=== PATIENT | female | born 1930 | race Caucasian/White ===

== ENCOUNTER 2017-04-13 15:35 | Emergency (ER) | payer MEDICARE, OTHER ==
[~2017-04-13] VITALS: Wt 40.0 kg
[~2017-04-13 15:35] MED LIST: ALEN70TA30 PO; ASPI-664 PO; DONE5TAB4 PO; METO-448 PO; SIMV20TA2 PO
--- NOTE | 2017-04-13 16:59 | ERD ---
ER Documentation Chief Complaint Chief Complaint RIBS AND R HIP/KNEE PAIN FOLLOWING MECHANICAL FALL HPI 86 y/o female patient with history of Alzheimer's disease, presents to the emergency department with her daughters c/o right hip pain located in the posterior trochanter, after a mechanical fall witnessed by her daughter last night. After the incident the patient was ambulating and did not complain about pain, no head trauma and no loss of consciousness. Denies headache, no chest pain, no dizziness, no fever, chills, N/V/D. Treatment attempted: Motrin with improvement of the pain ROS All systems reviewed and are negative except as per history of present illness. Medications Home Meds Reported Medications Aspirin* (Aspirin* EC) 81 Mg Tablet.dr, 81 MG PO DAILY, TAB 09/01/14 Metoprolol Tartrate* (Lopressor*) 25 Mg Tab, 25 MG PO BID, TAB 09/01/14 Alendronate Sodium* (Fosamax*) 70 Mg Tablet, 70 MG PO Q7D, TAB 09/01/14 Simvastatin (Simvastatin) 20 Mg Tablet, 20 MG PO DAILY 08/31/13 Donepezil Hcl* (Donepezil Hcl*) 5 Mg Tab.rapdis, 5 MG PO DAILY 08/31/13 Allergies Allergies: Coded Allergies: No Known Allergy (Unverified , 08/31/14) PMhx/Soc History of Surgery: No (NOT STATED) Anesthesia Reaction: No Hx Neurological Disorder: Yes (DEMENTIA) Hx Respiratory Disorders: No Hx Cardiac Disorders: Yes (HYPERLIPEDEMIA) Hx Psychiatric Problems: No Hx Miscellaneous Medical Probl: Yes (dementia,hyperlipidemia,osteoporosis) Hx Alcohol Use: No Hx Substance Use: No Hx Tobacco Use: No Physical Exam Vitals Vital Signs Date Time Temp Pulse Resp B/P Pulse Ox O2 Delivery O2 Flow Rate FiO2 04/13/17 15:39 98.1 74 18 139/63 99 Physical Exam Const: Alert, oriented only in person, in no distress Head: Atraumatic Eyes: Normal Conjunctiva ENT: Normal External Ears, Nose and Mouth. Neck: Full range of motion..~ No meningismus. Resp: Clear to auscultation bilaterally Cardio: Regular rate and rhythm, no murmurs Abd: Soft, non tender, non distended. Normal bowel sounds Skin: No petechiae or rashes Back: No midline or flank tenderness Ext: Right hip: No deformity, no ecchymosis, tenderness to palpation about the great trochanter Neur: Awake and alert Psych: Normal Mood and Affect Procedures/MDM 86 y/o female patient history of Alzheimer's, presents to the ED c/o right hip pain since last night after a mechanical fall. Vital signs stable, Physical exam showed localized tenderness and mild edema over her greater trochanter, no deformity. Differential diagnosis include but not limited to: Hip contusion, acute ligament/tendon injury, hip fracture, hip dislocation. Pertinent Data: X-Rays: DIAGNOSTIC IMAGING REPORT Patient: SUAD CROOK : 1930 Age: 86 Sex: F MR #: [id number] DOS: 04/13/171651 Ordering MD: SOCRATES GALLO MD Location: [facility] Room/Bed: PROCEDURE: XR Right Hip. CLINICAL INDICATION: Right hip pain. TECHNIQUE: Two views. Frontal and lateral. COMPARISON: No prior studies are available for comparison. FINDINGS: There is no right hip fracture. There is no dislocation. There is a possible nondisplaced fracture of the right superior pubic ramus with some irregularity noted. There is no other fracture. The soft tissues are normal. There are degenerative changes of the right hip with osteophytes noted. There is no joint space narrowing. There is no lytic or blastic lesion. There is no radiopaque foreign body. IMPRESSION: 1. Mild degenerative changes of the right hip. 2. Possible nondisplaced fracture of the right superior pubic ramus. Correlation with CT scan should be considered year 3. Otherwise unremarkable images of the right hip. RPTAT: QQ .David Torres MD, MD Date Time Electronically viewed and signed by .David Torres MD, MD on 04/13/2017 18:05 Physical examination and clinical presentation consistent most likely with hip contusion, the XR showed a possible nondisplaced fracture of the right superior pubic ramus, however, clinically, there is not suprapubic tenderness. During the ED course the patient remained stable Results and medical impression discussed with daughters whom agree with management. The patient will be discharged home with a Rx for ibuprofen as needed. Side effects of prescribed NSAID medication (GI distress, edema, bleeding, HTN) were reviewed. If symptoms persist, worsen or new symptoms develop, then patient is instructed to follow-up with the primary care provider. If the patient is unable to see the primary care provider, then return to the ED immediately. Departure Diagnosis: Primary Impression: Contusion of hip, right Condition: Stable Additional Instructions: Muchas hudson por [facility] para ocampo servicio. Esperamos que en ocampo visita a la lnoa de emergencia ocampo problema medico haya sido solucionado y que se sienta mucho mejor. Para estar seguros que ocampo mejoria sigue en proceso, le pedimos el favor de hacer joby giovani de seguimiento medico con ocampo doctor primario en los proximos 2-4 malone. Lleve con usted estos documentos y las medicinas recetadas. Si meeta sintomas empeoran y no puede aurelia a ocampo doctor, por favor regrese a lona de emergencia. En edna que usted no tenga un mdico de atencin primaria: Llame al mdico o clnica comunitaria de referencia que aparece abajo marilee las horas de consultorio para hacer joby giovani para que le vean. CLINICAS: [facility] [phone] [facility] [phone] [facility] [phone] [address] [facility] [phone] [facility] [phone] 6[address] [facility]. [phone] SOCRATES PACHECO MD Apr 13, 2017 16:59
--- NOTE | 2017-04-13 16:59 | ERD ---
ER Documentation Chief Complaint Chief Complaint RIBS AND R HIP/KNEE PAIN FOLLOWING MECHANICAL FALL HPI 86 y/o female patient with history of Alzheimer's disease, presents to the emergency department with her daughters c/o right hip pain located in the posterior trochanter, after a mechanical fall witnessed by her daughter last night. After the incident the patient was ambulating and did not complain about pain, no head trauma and no loss of consciousness. Denies headache, no chest pain, no dizziness, no fever, chills, N/V/D. Treatment attempted: Motrin with improvement of the pain ROS All systems reviewed and are negative except as per history of present illness. Medications Home Meds Reported Medications Aspirin* (Aspirin* EC) 81 Mg Tablet.dr, 81 MG PO DAILY, TAB 09/01/14 Metoprolol Tartrate* (Lopressor*) 25 Mg Tab, 25 MG PO BID, TAB 09/01/14 Alendronate Sodium* (Fosamax*) 70 Mg Tablet, 70 MG PO Q7D, TAB 09/01/14 Simvastatin (Simvastatin) 20 Mg Tablet, 20 MG PO DAILY 08/31/13 Donepezil Hcl* (Donepezil Hcl*) 5 Mg Tab.rapdis, 5 MG PO DAILY 08/31/13 Allergies Allergies: Coded Allergies: No Known Allergy (Unverified , 08/31/14) PMhx/Soc History of Surgery: No (NOT STATED) Anesthesia Reaction: No Hx Neurological Disorder: Yes (DEMENTIA) Hx Respiratory Disorders: No Hx Cardiac Disorders: Yes (HYPERLIPEDEMIA) Hx Psychiatric Problems: No Hx Miscellaneous Medical Probl: Yes (dementia,hyperlipidemia,osteoporosis) Hx Alcohol Use: No Hx Substance Use: No Hx Tobacco Use: No Physical Exam Vitals Vital Signs Date Time Temp Pulse Resp B/P Pulse Ox O2 Delivery O2 Flow Rate FiO2 04/13/17 15:39 98.1 74 18 139/63 99 Physical Exam Const: Alert, oriented only in person, in no distress Head: Atraumatic Eyes: Normal Conjunctiva ENT: Normal External Ears, Nose and Mouth. Neck: Full range of motion..~ No meningismus. Resp: Clear to auscultation bilaterally Cardio: Regular rate and rhythm, no murmurs Abd: Soft, non tender, non distended. Normal bowel sounds Skin: No petechiae or rashes Back: No midline or flank tenderness Ext: Right hip: No deformity, no ecchymosis, tenderness to palpation about the great trochanter Neur: Awake and alert Psych: Normal Mood and Affect Procedures/MDM 86 y/o female patient history of Alzheimer's, presents to the ED c/o right hip pain since last night after a mechanical fall. Vital signs stable, Physical exam showed localized tenderness and mild edema over her greater trochanter, no deformity. Differential diagnosis include but not limited to: Hip contusion, acute ligament/tendon injury, hip fracture, hip dislocation. Pertinent Data: X-Rays: DIAGNOSTIC IMAGING REPORT Patient: SUAD CROOK : 1930 Age: 86 Sex: F MR #: [id number] DOS: 04/13/171651 Ordering MD: SOCRATES GALLO MD Location: FTE Room/Bed: PROCEDURE: XR Right Hip. CLINICAL INDICATION: Right hip pain. TECHNIQUE: Two views. Frontal and lateral. COMPARISON: No prior studies are available for comparison. FINDINGS: There is no right hip fracture. There is no dislocation. There is a possible nondisplaced fracture of the right superior pubic ramus with some irregularity noted. There is no other fracture. The soft tissues are normal. There are degenerative changes of the right hip with osteophytes noted. There is no joint space narrowing. There is no lytic or blastic lesion. There is no radiopaque foreign body. IMPRESSION: 1. Mild degenerative changes of the right hip. 2. Possible nondisplaced fracture of the right superior pubic ramus. Correlation with CT scan should be considered year 3. Otherwise unremarkable images of the right hip. RPTAT: QQ .David Torres MD, MD Date Time Electronically viewed and signed by .David Torres MD, MD on 04/13/2017 18:05 Physical examination and clinical presentation consistent most likely with hip contusion, the XR showed a possible nondisplaced fracture of the right superior pubic ramus, however, clinically, there is not suprapubic tenderness. During the ED course the patient remained stable Results and medical impression discussed with daughters whom agree with management. The patient will be discharged home with a Rx for ibuprofen as needed. Side effects of prescribed NSAID medication (GI distress, edema, bleeding, HTN) were reviewed. If symptoms persist, worsen or new symptoms develop, then patient is instructed to follow-up with the primary care provider. If the patient is unable to see the primary care provider, then return to the ED immediately. Departure Diagnosis: Primary Impression: Contusion of hip, right Condition: Stable Additional Instructions: Muchas [place] por [facility] para ocampo servicio. Esperamos que en ocampo visita a la lona de emergencia ocampo problema medico haya sido solucionado y que se sienta mucho mejor. Para estar seguros que ocampo mejoria sigue en proceso, le pedimos el favor de hacer joby giovani de seguimiento medico con ocampo doctor primario en los proximos 2-4 malone. Lleve con usted estos documentos y las medicinas recetadas. Si meeta sintomas empeoran y no puede aurelia a ocampo doctor, por favor regrese a lona de emergencia. En edna que usted no tenga un mdico de atencin primaria: Llame al mdico o clnica comunitaria de referencia que aparece abajo marilee las horas de consultorio para hacer joby giovani para que le vean. CLINICAS: [facility] [phone] [facility] [phone] [address] [facility] [phone] [address] [facility] [phone] [facility] [phone] [address] [facility]. [phone] SOCRATES PACHECO MD Apr 13, 2017 16:59
--- NOTE | 2017-04-13 16:59 | ERD ---
ER Documentation Chief Complaint Chief Complaint RIBS AND R HIP/KNEE PAIN FOLLOWING MECHANICAL FALL HPI 86 y/o female patient with history of Alzheimer's disease, presents to the emergency department with her daughters c/o right hip pain located in the posterior trochanter, after a mechanical fall witnessed by her daughter last night. After the incident the patient was ambulating and did not complain about pain, no head trauma and no loss of consciousness. Denies headache, no chest pain, no dizziness, no fever, chills, N/V/D. Treatment attempted: Motrin with improvement of the pain ROS All systems reviewed and are negative except as per history of present illness. Medications Home Meds Reported Medications Aspirin* (Aspirin* EC) 81 Mg Tablet.dr, 81 MG PO DAILY, TAB 09/01/14 Metoprolol Tartrate* (Lopressor*) 25 Mg Tab, 25 MG PO BID, TAB 09/01/14 Alendronate Sodium* (Fosamax*) 70 Mg Tablet, 70 MG PO Q7D, TAB 09/01/14 Simvastatin (Simvastatin) 20 Mg Tablet, 20 MG PO DAILY 08/31/13 Donepezil Hcl* (Donepezil Hcl*) 5 Mg Tab.rapdis, 5 MG PO DAILY 08/31/13 Allergies Allergies: Coded Allergies: No Known Allergy (Unverified , 08/31/14) PMhx/Soc History of Surgery: No (NOT STATED) Anesthesia Reaction: No Hx Neurological Disorder: Yes (DEMENTIA) Hx Respiratory Disorders: No Hx Cardiac Disorders: Yes (HYPERLIPEDEMIA) Hx Psychiatric Problems: No Hx Miscellaneous Medical Probl: Yes (dementia,hyperlipidemia,osteoporosis) Hx Alcohol Use: No Hx Substance Use: No Hx Tobacco Use: No Physical Exam Vitals Vital Signs Date Time Temp Pulse Resp B/P Pulse Ox O2 Delivery O2 Flow Rate FiO2 04/13/17 15:39 98.1 74 18 139/63 99 Physical Exam Const: Alert, oriented only in person, in no distress Head: Atraumatic Eyes: Normal Conjunctiva ENT: Normal External Ears, Nose and Mouth. Neck: Full range of motion..~ No meningismus. Resp: Clear to auscultation bilaterally Cardio: Regular rate and rhythm, no murmurs Abd: Soft, non tender, non distended. Normal bowel sounds Skin: No petechiae or rashes Back: No midline or flank tenderness Ext: Right hip: No deformity, no ecchymosis, tenderness to palpation about the great trochanter Neur: Awake and alert Psych: Normal Mood and Affect Procedures/MDM 86 y/o female patient history of Alzheimer's, presents to the ED c/o right hip pain since last night after a mechanical fall. Vital signs stable, Physical exam showed localized tenderness and mild edema over her greater trochanter, no deformity. Differential diagnosis include but not limited to: Hip contusion, acute ligament/tendon injury, hip fracture, hip dislocation. Pertinent Data: X-Rays: DIAGNOSTIC IMAGING REPORT Patient: SUAD CROOK : 1930 Age: 86 Sex: F MR #: [id number] DOS: 04/13/171651 Ordering MD: SOCRATES GALLO MD Location: FTE Room/Bed: PROCEDURE: XR Right Hip. CLINICAL INDICATION: Right hip pain. TECHNIQUE: Two views. Frontal and lateral. COMPARISON: No prior studies are available for comparison. FINDINGS: There is no right hip fracture. There is no dislocation. There is a possible nondisplaced fracture of the right superior pubic ramus with some irregularity noted. There is no other fracture. The soft tissues are normal. There are degenerative changes of the right hip with osteophytes noted. There is no joint space narrowing. There is no lytic or blastic lesion. There is no radiopaque foreign body. IMPRESSION: 1. Mild degenerative changes of the right hip. 2. Possible nondisplaced fracture of the right superior pubic ramus. Correlation with CT scan should be considered year 3. Otherwise unremarkable images of the right hip. RPTAT: QQ .David Torres MD, MD Date Time Electronically viewed and signed by .David Torres MD, MD on 04/13/2017 18:05 Physical examination and clinical presentation consistent most likely with hip contusion, the XR showed a possible nondisplaced fracture of the right superior pubic ramus, however, clinically, there is not suprapubic tenderness. During the ED course the patient remained stable Results and medical impression discussed with daughters whom agree with management. The patient will be discharged home with a Rx for ibuprofen as needed. Side effects of prescribed NSAID medication (GI distress, edema, bleeding, HTN) were reviewed. If symptoms persist, worsen or new symptoms develop, then patient is instructed to follow-up with the primary care provider. If the patient is unable to see the primary care provider, then return to the ED immediately. Departure Diagnosis: Primary Impression: Contusion of hip, right Condition: Stable Additional Instructions: Muchas [place]udson por [facility] para ocampo servicio. Esperamos que en ocampo visita a la lona de emergencia ocampo problema medico haya sido solucionado y que se sienta mucho mejor. Para estar seguros que ocampo mejoria sigue en proceso, le pedimos el favor de hacer joby giovani de seguimiento medico con ocampo doctor primario en los proximos 2-4 malone. Lleve con usted estos documentos y las medicinas recetadas. Si meeta sintomas empeoran y no puede aurelia a ocampo doctor, por favor regrese a lona de emergencia. En edna que usted no tenga un mdico de atencin primaria: Llame al mdico o clnica comunitaria de referencia que aparece abajo marilee las horas de consultorio para hacer joby giovani para que le vean. CLINICAS: [facility] [phone] [facility] [phone] [address] [facility] [phone] [address] [facility] [phone] [facility] [phone] [address] [facility]. [phone] SOCRATES PACHECO MD Apr 13, 2017 16:59
--- NOTE | 2017-04-13 18:05 | RADRPT ---
PROCEDURE: XR Right Hip. CLINICAL INDICATION: Right hip pain. TECHNIQUE: Two views. Frontal and lateral. COMPARISON: No prior studies are available for comparison. FINDINGS: There is no right hip fracture. There is no dislocation. There is a possible nondisplaced fracture o f the right superior pubic ramus with some irregularity noted. There is no other fracture. The soft tissues are normal. There are degenerative changes of the right hip with osteophytes noted. There is no joint space narr owing. There is no lytic or blastic lesion. There is no radiopaque foreign body. IMPRESSION: 1. Mild degenerative changes of the right hip. 2. Possible nondisplaced fracture of the right superior pubic ramus. Correlation with CT scan shoul d be considered year 3. Otherwise unremarkable images of the right hip. RPTAT: QQ .David Torres MD, Date Time Electronically viewed and signed by .David Torres MD, on 04/13/2017 18:05 .R/
[2017-04-13] MEDS ORDERED: IBUP-1542 PO (18:21)
== END 2017-04-13 18:32 | disposition home or self-care (01) ==
LOC: FTE 15:35
DX: S70.01XA Contusion of right hip, initial encounter (principal); W18.39XA Other fall on same level, initial encounter; Y92.9 Unspecified place or not applicable; Z79.82 Long term (current) use of aspirin
CPT/HCPCS: 73510